=== PATIENT | female | born 1990 | race Caucasian/White ===

== ENCOUNTER 2018-07-09 14:49 | Emergency (ER) | payer SELFPAY ==
[2018-07-09 14:58] VITALS: Ht 170.2 cm
[2018-07-09 18:05] VITALS: BP 120/77
== END 2018-07-09 18:03 | disposition home or self-care (01) ==
LOC: ED 14:49
DX: S22.21XA Fracture of manubrium, initial encounter for closed fracture (principal); X58.XXXA Exposure to other specified factors, initial encounter; Y93.89 Activity, other specified; Y92.89 Other specified places as the place of occurrence of the external cause; Y99.8 Other external cause status
CPT/HCPCS: J1885